=== PATIENT | male | born 1960 ===

== ENCOUNTER 2017-10-13 12:10 | Emergency (ER) | payer MEDICARE, OTHER ==
--- NOTE | 2017-10-13 12:12 | ER Report ---
History and Physical Time Seen By MD: 12:09 HPI/CHASE CHIEF COMPLAINT: anxiety and alcohol use HISTORY OF PRESENT ILLNESS: This is a 56 year old male. He has been having anxiety for the last few days. He has a history of severe anxiety in the past and has self treated it with heavy drinking. Today drank a pint of liquor, heavy drinking the last 3 days. He lives in [place]. This is his first time in [place]. He will sometimes get chest pain with his anxiety. He had some yesterday and some early this morning, but none now. He has no nausea or vomiting. He is not short of breath. He says that he would like to detox for about 12 hours and then have some Librium to help with his alcohol use. He does have a history of hospitalization for detox in the past, but is not interested in that at this time. He reports having seizures with stopping drinking and report an episode in the past where he stopped breathing. REVIEW OF SYSTEMS: Constitutional: No fever or chills. Eyes: No vision changes. ENT: No sore throat. No congestion. Cardiovascular: No chest pain. No palpitations. Respiratory: No cough. No shortness of breath. Gastrointestinal: No abdominal pain. No nausea or vomiting. Genitourinary: No dysuria. No frequency Musculoskeletal: No musculoskeletal pain. Skin: No rashes. Neurological: No numbness. No headache. Allergies: Coded Allergies: No Known Drug Allergies (Unverified , 10/13/17) Home Meds Reported Medications Quetiapine Fumarate (SEROQUEL) 25 Mg Tablet, 25 MG PO QDAY 10/13/17 Citalopram Hydrobromide (CELEXA) 20 Mg Tablet, 20 MG PO QDAY, #5 TAB 10/13/17 Reviewed Nurses Notes: Yes Constitutional Vital Sign - Last 24 Hours 10/13/17 10/13/17 10/13/17 10/13/17 12:11 12:11 12:25 12:30 Temp 98.4 Pulse 90 83 Resp 28 B/P (MAP) 126/96 (106) 126/96 110/95 (100) Pulse Ox 91 93 O2 Delivery Room Air 10/13/17 10/13/17 10/13/17 10/13/17 12:40 12:55 13:00 13:10 Pulse ??? 79 83 B/P (MAP) 86/65 (72) Pulse Ox 91 91 10/13/17 10/13/17 10/13/17 10/13/17 13:25 13:30 13:35 13:50 Pulse 74 74 74 B/P (MAP) 100/74 (83) Pulse Ox 92 91 92 10/13/17 10/13/17 10/13/17 10/13/17 14:00 14:05 14:20 14:30 Pulse 70 75 B/P (MAP) 95/66 (76) 106/80 (89) Pulse Ox 89 95 10/13/17 10/13/17 10/13/17 14:35 14:50 15:00 Pulse 73 74 B/P (MAP) 125/90 (102) Pulse Ox 93 93 Intake and Output 10/13/17 10/13/17 10/14/17 15:00 23:00 07:00 Intake Total 2015.2 ml Balance 2015.2 ml Physical Exam General Appearance: The patient is alert. Disheveled appearance. The patient continually apologizes for his appearance. No acute distress. Eyes: Pupils are equal, round. Reactive to light. No pallor or icterus, but does have some injection of the sclera. Extraocular movements are intact. ENT: Mucous membranes are moist. Normal oral mucosa. Posterior oropharynx is normal. Neck: Supple and non tender. No lymphadenopathy. Respiratory: Lungs are clear to auscultation. Cardiovascular: Regular rate and rhythm. No murmurs, gallops or rubs. Normal capillary refill. Gastrointestinal: Abdomen is soft and non tender. Nondistended. No masses or organomegaly. Normal active bowel sounds. Neurological: Alert and oriented x3. No focal neurologic deficits noted other than effects of acute alcohol intoxication. Skin: Warm and dry. Musculoskeletal: Extremities are nontender. No tenderness in palpation of the cervical, thoracic and lumbar spine. DIFFERENTIAL DIAGNOSIS: After history and physical exam, differential diagnosis was considered for alcohol intoxication and anxiety Medical Decision Making Data Points Result Diagram: 10/13/17 1232 10/13/17 1232 Laboratory Hematology Test 10/13/17 12:32 10/13/17 12:41 Red Blood Count 5.44 M/uL (4.00-5.60) Mean Corpuscular Volume 98.9 fL (80.0-96.0) Mean Corpuscular Hemoglobin 34.4 pg (26.0-33.0) Mean Corpuscular Hemoglobin Concent 34.8 g/dL (32.0-36.0) Red Cell Distribution Width 16.0 % (11.5-14.5) Mean Platelet Volume 9.7 fL (7.2-11.1) Neutrophils (%) (Auto) 61.5 % (39.4-72.5) Lymphocytes (%) (Auto) 24.2 % (17.6-49.6) Monocytes (%) (Auto) 13.0 % (4.1-12.4) Eosinophils (%) (Auto) 0.8 % (0.4-6.7) Basophils (%) (Auto) 0.5 % (0.3-1.4) Nucleated RBC Relative Count (auto) 0.1 /100WBC Neutrophils # (Auto) 5.4 K/uL (2.0-7.4) Lymphocytes # (Auto) 2.1 K/uL (1.3-3.6) Monocytes # (Auto) 1.1 K/uL (0.3-1.0) Eosinophils # (Auto) 0.1 K/uL (0.0-0.5) Basophils # (Auto) 0.0 K/uL (0.0-0.1) Nucleated RBC Absolute Count (auto) 0.01 K/uL Sodium Level 149 mmol/L (137-145) Potassium Level 3.5 mmol/L (3.5-5.0) Chloride Level 107 mmol/L (98-107) Carbon Dioxide Level 24 mmol/L (22-30) Blood Urea Nitrogen 9 mg/dl (9-21) Creatinine 0.90 mg/dl (0.66-1.25) Glomerular Filtration Rate Calc > 60.0 Random Glucose 105 mg/dl (75-110) Calcium Level 8.5 mg/dl (8.4-10.2) Magnesium Level 2.1 mg/dl (1.7-2.2) Total Bilirubin 0.6 mg/dl (0.2-1.3) Aspartate Amino Transf (AST/SGOT) 114 U/L (0-35) Alanine Aminotransferase (ALT/SGPT) 66 U/L (0-56) Alkaline Phosphatase 130 U/L (0-126) Total Protein 7.3 gm/dl (6.3-8.2) Albumin 3.9 g/dl (3.5-5.0) Thyroid Stimulating Hormone (TSH) 1.23 uIU/ml (0.46-4.68) Salicylates Level < 10 mg/L Salicylate Last Dose Date unk Acetaminophen Level < 10 ug/ml Serum Alcohol 336 mg/dl Urine Color Yellow Urine Clarity Clear Urine pH 5.0 pH (4.8-9.5) Urine Specific [place] 1.017 Urine Protein Negative mg/dL (NEGATIVE) Urine Glucose (UA) Negative mg/dL (NEGATIVE) Urine Ketones Negative mg/dL (NEGATIVE) Urine Blood Negative (NEGATIVE) Urine Nitrite Negative (NEGATIVE) Urine Bilirubin Negative (NEGATIVE) Urine Urobilinogen Negative mg/dL (0.2-1.9) Urine Leukocyte Esterase Negative (NEGATIVE) Urine RBC <1 /HPF (0-2/HPF) Urine WBC 2 /HPF (0-5/HPF) Urine Squamous Epithelial Cells Moderate /LPF (</=FEW) Urine Bacteria Negative /HPF (NONE-FEW) Urine Hyaline Casts Few /LPF (NONE-FEW) Urine Mucus Few /HPF (NONE-FEW) Urine Opiates Screen Negative Urine Barbiturates Screen Negative Ur Tricyclic Antidepressants Screen Negative Urine Phencyclidine Screen Negative Urine Amphetamines Screen Negative Urine Benzodiazepines Screen Positive Urine Cocaine Screen Negative Urine Cannabinoids Screen Negative Chemistry Test 10/13/17 12:32 10/13/17 12:41 White Blood Count 8.8 k/uL (4.5-11.0) Red Blood Count 5.44 M/uL (4.00-5.60) Hemoglobin 18.7 g/dL (14.0-18.0) Hematocrit 53.8 % (42.0-52.0) Mean Corpuscular Volume 98.9 fL (80.0-96.0) Mean Corpuscular Hemoglobin 34.4 pg (26.0-33.0) Mean Corpuscular Hemoglobin Concent 34.8 g/dL (32.0-36.0) Red Cell Distribution Width 16.0 % (11.5-14.5) Platelet Count 168 K/uL (150-450) Mean Platelet Volume 9.7 fL (7.2-11.1) Neutrophils (%) (Auto) 61.5 % (39.4-72.5) Lymphocytes (%) (Auto) 24.2 % (17.6-49.6) Monocytes (%) (Auto) 13.0 % (4.1-12.4) Eosinophils (%) (Auto) 0.8 % (0.4-6.7) Basophils (%) (Auto) 0.5 % (0.3-1.4) Nucleated RBC Relative Count (auto) 0.1 /100WBC Neutrophils # (Auto) 5.4 K/uL (2.0-7.4) Lymphocytes # (Auto) 2.1 K/uL (1.3-3.6) Monocytes # (Auto) 1.1 K/uL (0.3-1.0) Eosinophils # (Auto) 0.1 K/uL (0.0-0.5) Basophils # (Auto) 0.0 K/uL (0.0-0.1) Nucleated RBC Absolute Count (auto) 0.01 K/uL Glomerular Filtration Rate Calc > 60.0 Calcium Level 8.5 mg/dl (8.4-10.2) Magnesium Level 2.1 mg/dl (1.7-2.2) Total Bilirubin 0.6 mg/dl (0.2-1.3) Aspartate Amino Transf (AST/SGOT) 114 U/L (0-35) Alanine Aminotransferase (ALT/SGPT) 66 U/L (0-56) Alkaline Phosphatase 130 U/L (0-126) Total Protein 7.3 gm/dl (6.3-8.2) Albumin 3.9 g/dl (3.5-5.0) Thyroid Stimulating Hormone (TSH) 1.23 uIU/ml (0.46-4.68) Salicylates Level < 10 mg/L Salicylate Last Dose Date unk Acetaminophen Level < 10 ug/ml Serum Alcohol 336 mg/dl Urine Color Yellow Urine Clarity Clear Urine pH 5.0 pH (4.8-9.5) Urine Specific [place] 1.017 Urine Protein Negative mg/dL (NEGATIVE) Urine Glucose (UA) Negative mg/dL (NEGATIVE) Urine Ketones Negative mg/dL (NEGATIVE) Urine Blood Negative (NEGATIVE) Urine Nitrite Negative (NEGATIVE) Urine Bilirubin Negative (NEGATIVE) Urine Urobilinogen Negative mg/dL (0.2-1.9) Urine Leukocyte Esterase Negative (NEGATIVE) Urine RBC <1 /HPF (0-2/HPF) Urine WBC 2 /HPF (0-5/HPF) Urine Squamous Epithelial Cells Moderate /LPF (</=FEW) Urine Bacteria Negative /HPF (NONE-FEW) Urine Hyaline Casts Few /LPF (NONE-FEW) Urine Mucus Few /HPF (NONE-FEW) Urine Opiates Screen Negative Urine Barbiturates Screen Negative Ur Tricyclic Antidepressants Screen Negative Urine Phencyclidine Screen Negative Urine Amphetamines Screen Negative Urine Benzodiazepines Screen Positive Urine Cocaine Screen Negative Urine Cannabinoids Screen Negative Toxicology Test 10/13/17 12:32 10/13/17 12:41 Salicylates Level < 10 mg/L Salicylate Last Dose Date unk Acetaminophen Level < 10 ug/ml Serum Alcohol 336 mg/dl Urine Opiates Screen Negative Urine Barbiturates Screen Negative Ur Tricyclic Antidepressants Screen Negative Urine Phencyclidine Screen Negative Urine Amphetamines Screen Negative Urine Benzodiazepines Screen Positive Urine Cocaine Screen Negative Urine Cannabinoids Screen Negative Urinalysis Test 10/13/17 12:41 Urine Color Yellow Urine Clarity Clear Urine pH 5.0 pH (4.8-9.5) Urine Specific [place] 1.017 Urine Protein Negative mg/dL (NEGATIVE) Urine Glucose (UA) Negative mg/dL (NEGATIVE) Urine Ketones Negative mg/dL (NEGATIVE) Urine Blood Negative (NEGATIVE) Urine Nitrite Negative (NEGATIVE) Urine Bilirubin Negative (NEGATIVE) Urine Urobilinogen Negative mg/dL (0.2-1.9) Urine Leukocyte Esterase Negative (NEGATIVE) Urine RBC <1 /HPF (0-2/HPF) Urine WBC 2 /HPF (0-5/HPF) Urine Squamous Epithelial Cells Moderate /LPF (</=FEW) Urine Bacteria Negative /HPF (NONE-FEW) Urine Hyaline Casts Few /LPF (NONE-FEW) Urine Mucus Few /HPF (NONE-FEW) ED Course/Re-evaluation Clinical Indication for ER IV: Hydration, IV Access ED Course The patient was very shaky initially, but improved with Librium 20mg oral dose. Labs as noted with elevation of LFTs and elevated alcohol level. Positive for benzodiazepines on drug screen, but negative otherwise. He was not sure what he wanted to do, but on further talking to him, he was interested in coming in to the hospital for detox. Discussed the case with Dr. Vasquez who accepted the patient for admission. Decision to Disposition Date: October 13, 2017 Decision to Disposition Time: 14:42 Depart Departure Latest Vital Signs Vital Signs Date Time Temp Pulse Resp B/P (MAP) Pulse Ox O2 Delivery O2 Flow Rate FiO2 10/13/17 15:00 125/90 (102) 10/13/17 14:50 74 93 10/13/17 12:11 98.4 28 Room Air Impression: Primary Impression: Alcohol intoxication Condition: Condition Unchanged Disposition: XFER TO [facility] Problem Qualifiers Primary Impression: Alcohol intoxication Complication of substance-induced condition: uncomplicated Qualified Codes: F10.920 - Alcohol use, unspecified with intoxication, uncomplicated TESSIE SR MD October 13, 2017 12:12
[2017-10-13] MEDS ORDERED: THIAMINE HCL(*) 200 MG/2 ML IN 100 MG, FOLIC ACID(*) 50 MG/10 ML INJ 1 MG, MULTIVITAMIN... IV ONE (12:39)
[2017-10-13] MEDS ORDERED: NS(*) 0.9% 1000 ML BAG 1,000 ML IV ONE (12:39)
[2017-10-13 13:07] LABS: PLATELET COUNT, AUTOMATED 168 K/uL (150-450)
[2017-10-13] MEDS ORDERED: CITA-156 PO (13:17)
[2017-10-13] MEDS ORDERED: QUET25TA30 PO (14:53)
[2017-10-13 15:00] VITALS: BP 125/90
== END 2017-10-13 15:20 ==
LOC: ER 12:14
DX: F10.920 Alcohol use, unspecified with intoxication, uncomplicated (principal)
CPT/HCPCS: 80305; 80320; 80329; 81001; 83735; 84443; 85025; 96361; 96365; 96366; 99285; J3411; J3475; J7030; 82040; 82247; 82310; 82374; 82435; 82565; 82947; 84075; 84132; 84155; 84295; 84450; 84460; 84520

== ENCOUNTER 2017-10-13 14:51 | Inpatient (IN) | payer MEDICARE, OTHER ==
[~2017-10-13] VITALS: Ht 172.7 cm; Wt 68.0 kg
[~2017-10-13 14:51] MED LIST changes: -FOLI-68 PO; -HYDR25CA83 PO; -LAMO100T56 PO; -LEVO50TA80 PO; -LUR80PT PO; -MULT-1379 PO; -NICO-218 TD; -QUET25TA30 PO; -THIA100T62 PO; -VENL75CA58 PO
[2017-10-13] MEDS ORDERED: QUET25TA30 PO (14:53)
[2017-10-13 15:20] VITALS: BP 128/90
[2017-10-13] MEDS ORDERED: MAG HYD/AL HYD/SIMETH 30ML UDC PO PRN (15:40)
[2017-10-13] MEDS: DIAZEPAM 20 MG PER CIWA PROTOCOL PO PRN ×5 (15:47→22:16)
[2017-10-13] MEDS: NICOTINE 21 MG/24 HR PATCH TD SCH (16:51)
[2017-10-13 21:10] VITALS: BP 126/82
[2017-10-13] MEDS: QUEtiapine FUM 25 MG TAB PO SCH (21:20)
[2017-10-14] VITALS (8 sets, daily range): BP systolic 102–149; BP diastolic 60–116
[2017-10-14] MEDS: DIAZEPAM 20 MG PER CIWA PROTOCOL PO PRN ×13 (04:25→21:32)
[2017-10-14] MEDS: THIAMINE HCL 100 MG TAB PO SCH (08:30)
[2017-10-14] MEDS: MULTIVITAMINS PO SCH (08:30)
[2017-10-14] MEDS: CITALOPRAM HYDROBROM 20 MG TAB PO SCH (08:30)
[2017-10-14] MEDS: FOLIC ACID 1 MG TAB PO SCH (08:30)
[2017-10-14] MEDS: QUEtiapine FUM 25 MG TAB PO SCH ×2 (08:30→21:30)
[2017-10-14] MEDS: NICOTINE 21 MG/24 HR PATCH TD SCH (08:30)
[2017-10-14] MEDS: IBUPROFEN 600 MG TAB PO PRN (13:56)
--- NOTE | 2017-10-14 21:26 | BHS History & Physical ---
History of Present Illness Chief Complaint "I was DT-ing." History of Present Illness This is the 5th ever detox admission for this 56 year old man with history of alcohol dependance who is admitted on a voluntary basis. Pt's actenkbb-sd-ecs was driving him home to [place] when she left him here in [place] at a truck stop "because of a miscommunication." Pt said he was having a panic attack and got himself a ride to the ER, where he was noted to be intoxicated, with BAL 336 , was flushed and tremulous, and was given librium 20 mg with good result. Pt says he has been drinking more heavily over past one month-- prior to that he was sober for 5 weeks after an inpatient detox in [place]. Pt has been drinking most of adult life, but significantly more since 2012, when his son of complications of alcohol dependence. Pt reports that once he had a withdrawal seizure, when he "stopped breathing." He has 3 prior detox admissions in [place] and one in [place], [place]. He has never had a rehab admission. He has been treated for depression and anxiety as an outpatient [facility]-- he sees Dr. Cedillo at the [facility] in [place] once every 6 months and is maintained on Celexa 20 mg q am, and Seroquel 25 mg BID. He denies any history of suicidal ideation or suicide attempts, and denies any significant increase in depressive symptoms currently. [facility] - History Mental Health History: 4 prior detox admissions; outpatient medication management for depression and anxiety every 6 months, on celexa and seroquel. Problems: Substance Abuse History: Alcohol abuse since his teens. Past history of abusing morphine after fractured vertebrae, none in past two years. No other substance abuse. Victim Issues: denies Other Social History: Born in [place], to parents. Oldest of 5 children-- two brothers and two sisters. Dropped out in 10th grade, joined [employer] for 3 years age [age], honorable discharge, served [employer]. and twice, had two sons. One in 2012. Lives in [place] with other son and daughter in law, and 4 year old granddaughter. Has VA insurance but no service-connected disability. Home Meds Reported Medications Quetiapine Fumarate (SEROQUEL) 25 Mg Tablet, 25 MG PO BID 10/13/17 Citalopram Hydrobromide (CELEXA) 20 Mg Tablet, 20 MG PO QAM, #5 TAB 10/13/17 Allergies: Coded Allergies: No Known Drug Allergies (Unverified , 10/13/17) Family Psychiatric History: Son of complications of alcohol dependence BHS - Exam Physical Exam Vital Signs Vital Signs 10/14/17 10/14/17 10/14/17 04:20 13:50 17:40 Temp 97.8 Pulse 88 Resp 16 B/P (MAP) 140/100 (113) Pulse Ox 91 O2 Delivery Room Air O2 Flow Rate 3.0 Mental Status Exam General Appearance: Cooperative, Polite, Good Interaction, Unkept, Other Speech: Delayed, Slurred Mood: Dysthmic/Depressed, Other ("not good, but I did this to myself.") Affect: Sad Thought Process: Organized, Logical, Goal Directed Thought Content: No Suicidal Ideation, No Homicidal Ideation, No Delusions, No Auditory Halllucinations, No Visual Hallucinations, No Thought Broadcasting, No Ideas of Reference, No Obsessions, No Compulsions, No Other Sensorium: Clear Cognition: Alert & Oriented-Person, Alert & Oriented-Place, Alert & Oriented- Time, [id number]-[id number] Memory: Immediate, Recent, Remote Intelligence: Average Insight Judgment: Fair Sleep: Normal Medical Decision Making Pre-Admit Course Medical Record Review: Yes [facility] Assessment and Plan [id number] Encounter Date: October 14, 2017 Ruar-us-Zsrm Encounter Time: 10:30 [facility] Plan: Admit to Unit, Necessary Precautions, Individual/Group Therapy, Admin /Titrate Meds, Educate Patient Tobacco Medications: Started Multpiple Antipsychotics Used: No Problems: (1) Alcohol withdrawal Assessment & Plan: Will follow CIWA protocol using valium for detox. (2) Alcohol use disorder, severe, dependence Assessment & Plan: Will encourage rehab admission after detox completed. (3) Persistent depressive disorder Assessment & Plan: continue nick and NILA Talavera MD October 14, 2017 21:25
[2017-10-15 05:59] VITALS: BP 122/72
[2017-10-15] MEDS: IBUPROFEN 600 MG TAB PO PRN (08:11)
[2017-10-15] MEDS: CITALOPRAM HYDROBROM 20 MG TAB PO SCH (08:12)
[2017-10-15] MEDS: QUEtiapine FUM 25 MG TAB PO SCH ×2 (08:12→21:08)
[2017-10-15] MEDS: FOLIC ACID 1 MG TAB PO SCH (08:12)
[2017-10-15] MEDS: MULTIVITAMINS PO SCH (08:12)
[2017-10-15] MEDS: NICOTINE 21 MG/24 HR PATCH TD SCH (08:13)
[2017-10-15] MEDS: THIAMINE HCL 100 MG TAB PO SCH (08:13)
[2017-10-15 10:22] VITALS: BP 120/97
[2017-10-15] MEDS: DIAZEPAM 20 MG PER CIWA PROTOCOL PO PRN (11:27)
--- NOTE | 2017-10-15 12:07 | BHS Progress Note ---
S - Subjective Progress Notes Subjective Seen in patient's room this morning accompanied by treatment team. Patient reports he is much better today than yesterday--much less tremulous and his appetite is returning. Nausea is better. Still pretty "shaky" and feel that he needs more diazepam in order to be comfortable. Denies audio/visual hallucinations. Denies feeling depressed but admits to restlessness associated with withdrawal. States he takes citalopram and quetiapine for sleep and anxiety but feels that these are working well. Affirms desire to quit drinking and understanding that he needs to go to a residential program to get and stay sober. Discussed referral options including [facility]. Says that he is ready to take that step. Would like to return to [place] and live with his son and granddaughter. New PMH--Agus revealed to Viviana that he is Hep C positive. In treatment team, we contacted the patient's son who believes that his father has a serious drinking problem and needs to go to treatment. He says that his father was in treatment once before through [facility] but he was not successful in that program and continued to drink. Agus is welcome to return to his son's home in [place], however, the son does not feel confident that his father will not drink while he is awaiting placement. We talked about his going to a structured transition placement in [place] while he is awaiting a treatment bed. Considered placement options. We agreed to pursue application to the [facility] program and began that process. Suicidal Ideation: None S - Objective Physical Exam Muscle Strength and Tone: Other (tremulous) [facility] Medications Reviewed: Side Effects (denies side effects) Mental Status Exam General Appearance: Cooperative, Polite, Good Interaction, Unkept Speech: Clear, Spontaneous, Normal Rate, Normal Rhythm, Normal Volume, Normal Tone Mood: Dysthmic/Depressed, Other ("not good, but I did this to myself.") Affect: Sad Thought Process: Organized, Logical, Goal Directed Thought Content: No Suicidal Ideation, No Homicidal Ideation, No Delusions, No Auditory Halllucinations, No Visual Hallucinations, No Thought Broadcasting, No Ideas of Reference, No Obsessions, No Compulsions, No Other Sensorium: Clear Cognition: Alert & Oriented-Person, Alert & Oriented-Place, Alert & Oriented- Time (able to state day, date), Fiwxk-Cphlzyzv-Vekvkaqxx Memory: Immediate, Recent, Remote Intelligence: Average Insight Judgment: Good (Understands the need to get and stay sober) [facility] Assessment and Plan Yegz-ml-Lskv Encounter Date: October 15, 2017 Rlqe-pd-[id number] Encounter Time: 08:15 (15 minutes of kuis-ur-jgzc time spent with patient, 20 minutes in family conference,release plan) [facility] Plan: Necessary Precautions, Individual/Group Therapy, Admin/Titrate Meds, Educate Patient Tobacco Medications: Started Multpiple Antipsychotics Used: No Problems: (1) Alcohol withdrawal (2) Alcohol use disorder, severe, dependence (3) Persistent depressive disorder SEPIDEH HIDALGO DO October 15, 2017 08:32
[2017-10-15 15:15] VITALS: BP 105/80
[2017-10-15 19:46] VITALS: BP 115/89
[2017-10-16 04:48] VITALS: BP 108/78
[2017-10-16 07:11] LABS: PLATELET COUNT, AUTOMATED 120 K/uL (150-450)
[2017-10-16] MEDS: MULTIVITAMINS PO SCH (08:23)
[2017-10-16] MEDS: FOLIC ACID 1 MG TAB PO SCH (08:23)
[2017-10-16] MEDS: CITALOPRAM HYDROBROM 20 MG TAB PO SCH (08:23)
[2017-10-16] MEDS: THIAMINE HCL 100 MG TAB PO SCH (08:23)
[2017-10-16] MEDS: QUEtiapine FUM 25 MG TAB PO SCH ×2 (08:23→20:57)
[2017-10-16] MEDS: NICOTINE 21 MG/24 HR PATCH TD SCH (09:19)
[2017-10-16 09:22] VITALS: BP 102/72
--- NOTE | 2017-10-16 10:09 | BHS Progress Note ---
[facility] - Subjective Progress Notes Subjective "I'm still having nausea and I miss my family in [place]." Reports feeling better with detox symptoms, diarrhea subsided, able to eat and drink. Reports son as best support system. Consideration for placement at [facility] for structured living prior to residential treatment program Denies depression or anxiety, denies auditory/visual hallucinations Desires to go to residential treatment, application completed for [facility] in [place], [place] Denies urge to drink, limited appetite, gait fairly steady, tremulous CIWA = 7 @ 0920 Suicidal Ideation: None Homicidal Ideation: None [facility] - Objective Physical Exam Vital Signs Allergies Coded Allergies No Known Drug Allergies (Unverified10/13/17) Deferred Vital Signs Date Time Temp Pulse Resp B/P (MAP) Pulse Ox O2 Delivery O2 Flow Rate FiO2 10/16/17 09:22 98.6 16 102/72 (82) 95 Nasal Cannula 2.0 10/16/17 04:48 92 [facility] Medications Reviewed: Side Effects (denies side effects) Mental Status Exam General Appearance: Cooperative, Polite, Good Interaction, Unkept Speech: Clear, Spontaneous, Normal Rate, Normal Rhythm, Normal Volume, Normal Tone Mood: Dysthmic/Depressed, No Other Affect: Sad Thought Process: Organized, Logical, Goal Directed Thought Content: No Suicidal Ideation, No Homicidal Ideation, No Delusions, No Auditory Halllucinations, No Visual Hallucinations, No Thought Broadcasting, No Ideas of Reference, No Obsessions, No Compulsions, No Other Sensorium: Clear Cognition: Alert & Oriented-Person, Alert & Oriented-Place, Alert & Oriented- Time (able to state day, date), Ipodz-Apnezbvb-Gzrnubwuq Memory: Immediate, Recent, Remote Intelligence: Average Insight Judgment: Good (Understands the need to get and stay sober) Result Diagram: 10/16/17 0649 10/16/17 0649 Lab Vital Signs Date Time Temp Pulse Resp B/P (MAP) Pulse Ox O2 Delivery O2 Flow Rate FiO2 10/16/17 09:22 98.6 16 102/72 (82) 95 Nasal Cannula 2.0 10/16/17 04:48 92 Allergies Coded Allergies No Known Drug Allergies (Unverified10/13/17) [facility] Assessment and Plan Ketc-lu-[id number] Encounter Date: October 16, 2017 Gglq-hg-[id number] Encounter Time: 10:07 BHS Plan: Necessary Precautions, Individual/Group Therapy, Admin/Titrate Meds, Educate Patient Tobacco Medications: Started Multpiple Antipsychotics Used: No Problems: (1) Alcohol use disorder, severe, dependence Status: Chronic (2) Persistent depressive disorder Status: Chronic (3) Alcohol withdrawal Status: Acute Condition Continue CIWA protocol for alcohol detoxification Maintain precautions Encourage fluids Ongoing discharge planning with consideration of residential treatment program GONZALO BHATIA NP October 16, 2017 10:09
[2017-10-16] MEDS: IBUPROFEN 600 MG TAB PO PRN ×2 (10:51→17:43)
[2017-10-16 13:28] VITALS: BP 96/64
[2017-10-16] MEDS ORDERED: VENL75CA58 PO (14:04)
[2017-10-17 06:27] VITALS: BP 110/72
[2017-10-17] MEDS: THIAMINE HCL 100 MG TAB PO SCH (08:10)
[2017-10-17] MEDS: FOLIC ACID 1 MG TAB PO SCH (08:10)
[2017-10-17] MEDS: MULTIVITAMINS PO SCH (08:10)
[2017-10-17] MEDS: QUEtiapine FUM 25 MG TAB PO SCH ×2 (08:10→20:51)
[2017-10-17] MEDS: CITALOPRAM HYDROBROM 20 MG TAB PO SCH (08:10)
[2017-10-17] MEDS: NICOTINE 21 MG/24 HR PATCH TD SCH (08:11)
--- NOTE | 2017-10-17 10:00 | BHS Progress Note ---
BHS - Subjective Progress Notes Subjective "I've just have depression about putting myself here." Depression rated "6, I'm not happy with myself. There's no reason for it." Maintains desire to enter residential substance abuse treatment Denies urge to drink at present time, agrees with son participating in treatment team 10/18/17 Sleeping well, denies nausea/diarrhea, no tremor visible VS: 98.6 T, 74 P, 118/72 BP, 95% oxygen saturation Labs 10/16/17: Platelets 120, AST 67, ALT 53 total bilirubin 0.8 Suicidal Ideation: None Homicidal Ideation: None BHS - Objective Physical Exam Vital Signs Current Medications Medications (Trade) Dose Ordered Sig/Petar Route PRN Reason Start Time Stop Time Status Last Admin Dose Admin Al Hydrox/Mg Hydrox/Simethicone (Maalox(*) 30 ml Udcup (Or Equiv)) 30 ml Q4H PRN PO DYSPEPSIA 10/13/17 15:40 11/12/17 15:39 Multivitamins (Thera-M Enhanced Tab (Or Equiv)) 1 each QDAY PO 10/14/17 09:00 11/13/17 08:59 10/17/17 08:10 Thiamine HCl (Vitamin B-1(*) 100 Mg Tab (Or Equiv)) 100 mg QDAY PO 10/14/17 09:00 11/13/17 08:59 10/17/17 08:10 Folic Acid (Folic Acid (*) 1 Mg Tab) 1 mg QDAY PO 10/14/17 09:00 11/13/17 08:59 10/17/17 08:10 Diazepam (Valium(*) 10 Mg Tab (Or Equiv)) 20 mg Q1H PRN PO FOLLOW CIWA PROTOCOL 10/13/17 15:40 10/27/17 15:39 10/15/17 11:27 Nicotine (Nicoderm Cq(*) 21 Mg/24 Hr (Or Equiv)) 21 mg QDAY TD 10/13/17 16:10 11/12/17 16:09 10/17/17 08:11 Citalopram Hydrobromide (CeleXA 20 MG TAB (OR EQUIV)) 20 mg QAM PO 10/14/17 09:00 11/13/17 08:59 10/17/17 08:10 Quetiapine Fumarate (SEROquel 25 MG TAB (OR EQUIV)) 25 mg BID PO 10/13/17 21:00 11/12/17 20:59 10/17/17 08:10 Ibuprofen (Motrin (*) 600 Mg Tab (Or Equiv)) 600 mg Q6H PRN PO HEADACHE 10/14/17 13:30 11/13/17 13:29 10/16/17 17:43 Vital Signs Date Time Temp Pulse Resp B/P (MAP) Pulse Ox O2 Delivery O2 Flow Rate FiO2 10/17/17 06:27 98.7 59 110/72 (85) 94 Room Air 10/16/17 13:28 22 10/16/17 09:22 2.0 Allergies Coded Allergies No Known Drug Allergies (Unverified10/13/17) [facility] Medications Reviewed: Side Effects (denies side effects) Mental Status Exam General Appearance: Cooperative, Polite, Good Interaction, Unkept Speech: Clear, Spontaneous, Normal Rate, Normal Rhythm, Normal Volume, Normal Tone Mood: Dysthmic/Depressed, No Other Affect: Sad Thought Process: Organized, Logical, Goal Directed Thought Content: No Suicidal Ideation, No Homicidal Ideation, No Delusions, No Auditory Halllucinations, No Visual Hallucinations, No Thought Broadcasting, No Ideas of Reference, No Obsessions, No Compulsions, No Other Sensorium: Clear Cognition: Alert & Oriented-Person, Alert & Oriented-Place, Alert & Oriented- Time (able to state day, date), Jdeax-Hcdkfidy-Jndrpnlzx Memory: Immediate, Recent, Remote Intelligence: Average Insight Judgment: Good (Understands the need to get and stay sober) Result Diagram: 10/16/17 0649 10/16/17 0649 Microbiology Vital Signs Date Time Temp Pulse Resp B/P (MAP) Pulse Ox O2 Delivery O2 Flow Rate FiO2 10/17/17 06:27 98.7 59 110/72 (85) 94 Room Air 10/16/17 13:28 22 10/16/17 09:22 2.0 [facility] Assessment and Plan [id number] Encounter Date: October 17, 2017 Kszy-[id number] Encounter Time: 09:58 [facility] Plan: Necessary Precautions, Individual/Group Therapy, Admin/Titrate Meds, Educate Patient Tobacco Medications: Started Multpiple Antipsychotics Used: No Problems: (1) Alcohol use disorder, severe, dependence Status: Chronic (2) Persistent depressive disorder Status: Chronic (3) Alcohol withdrawal Status: Acute Condition Continue current medication and treatment Ongoing discharge planning seeking appropriate residential treatment program Maintain precautions GONZALO BHATIA NP October 17, 2017 10:00
[2017-10-17 10:05] VITALS: BP 118/72
[2017-10-18 05:32] VITALS: BP 109/74
[2017-10-18 06:21] LABS: PLATELET COUNT, AUTOMATED 117 K/uL (150-450)
[2017-10-18] MEDS: MULTIVITAMINS PO SCH (08:10)
[2017-10-18] MEDS: FOLIC ACID 1 MG TAB PO SCH (08:10)
[2017-10-18] MEDS: THIAMINE HCL 100 MG TAB PO SCH (08:10)
[2017-10-18] MEDS: CITALOPRAM HYDROBROM 20 MG TAB PO SCH (08:10)
[2017-10-18] MEDS: QUEtiapine FUM 25 MG TAB PO SCH ×2 (08:10→20:52)
[2017-10-18] MEDS: NICOTINE 21 MG/24 HR PATCH TD SCH (08:11)
[2017-10-18 10:00] VITALS: BP 116/85
--- NOTE | 2017-10-18 12:41 | BHS Progress Note ---
[facility] - Subjective Progress Notes Subjective Patient interacting well today with this provider and staff. Patient admits that his finances are limited, and that he can not afford hotel room. Continues to voice intention to enter rehab. Appetite and sleep good, and patient denies any other concerns today. Will continue to monitor alcohol withdrawal to completion, and solidify residential treatment plans. Suicidal Ideation: None Homicidal Ideation: None [facility] - Objective Physical Exam Vital Signs Vital Signs Date Time Temp Pulse Resp B/P (MAP) Pulse Ox O2 Delivery O2 Flow Rate FiO2 10/18/17 10:00 98.1 65 116/85 (95) 94 Oxy Mask 2.0 10/18/17 05:32 15 Muscle Strength and Tone: WNL Gait and Station: Steady [facility] Medications Reviewed: Side Effects (denies side effects), Benefits of Medication, Risks Allergies Reviewed: Yes Mental Status Exam General Appearance: Casual, Well Groomed, Good Eye Contact, Cooperative, Polite , Good Interaction, No Unkept, No Tearful, No Psychomotor Agitation, No Psychomotor Retardation, No Bizarre Mannerisms, No Tics Speech: Clear, Spontaneous, Normal Rate, Normal Rhythm, Normal Volume, Normal Tone Mood: No Dysthmic/Depressed, Euthymic, No Hyperthymic, No Other Affect: Full and Appropriate, Calm, No Sad, No Neutral, No Flat, No Withdrawn, No Tearful, No Anxious, No Agitated Thought Process: Organized, Logical, Goal Directed, No Loose Associations, No Flight of Ideas Thought Content: No Suicidal Ideation, No Homicidal Ideation, No Delusions, No Auditory Halllucinations, No Visual Hallucinations, No Thought Broadcasting, No Ideas of Reference, No Obsessions, No Compulsions, No Other Sensorium: Clear Cognition: Alert & Oriented-Person, Alert & Oriented-Place, Alert & Oriented- Time, Kpnol-Cdgnjykk-Iccybfzkq Memory: Immediate, Recent, Remote Intelligence: Average Insight Judgment: Good (Understands the need to stay sober) Result Diagram: 10/18/1761210/18/17612 [facility] Assessment and Plan Awrc-dr-Lowu Encounter Date: October 18, 2017 Rtza-mv-[id number] Encounter Time: 11:00 [facility] Plan: Necessary Precautions, Individual/Group Therapy, Admin/Titrate Meds, Educate Patient Tobacco Medications: Started Multpiple Antipsychotics Used: No Problems: (1) Alcohol withdrawal Status: Acute (2) Alcohol use disorder, severe, dependence Status: Chronic (3) Persistent depressive disorder Status: Chronic Condition 1. No medication changes. 2. solidify plans for entrance into rehab. Problem Qualifiers (1) Alcohol withdrawal: Complication of substance-induced condition: uncomplicated Qualified Codes: F10.230 - Alcohol dependence with withdrawal, uncomplicated SKIP CORREIA MD October 18, 2017 12:41
[2017-10-18 21:36] VITALS: BP 130/87
[2017-10-19 06:06] VITALS: BP 122/92
[2017-10-19] MEDS: FOLIC ACID 1 MG TAB PO SCH (08:11)
[2017-10-19] MEDS: THIAMINE HCL 100 MG TAB PO SCH (08:11)
[2017-10-19] MEDS: QUEtiapine FUM 25 MG TAB PO SCH (08:11)
[2017-10-19] MEDS: CITALOPRAM HYDROBROM 20 MG TAB PO SCH (08:11)
[2017-10-19] MEDS: MULTIVITAMINS PO SCH (08:11)
[2017-10-19] MEDS: NICOTINE 21 MG/24 HR PATCH TD SCH (08:12)
[2017-10-19] MEDS ORDERED: LUR80PT PO (09:01)
[2017-10-19] MEDS ORDERED: LAMO100T56 PO (09:02)
[2017-10-19] MEDS ORDERED: MULT-1379 PO ×2 (09:03→09:30)
[2017-10-19] MEDS ORDERED: LEVO50TA80 PO (09:03)
[2017-10-19] MEDS ORDERED: HYDR25CA83 PO (09:04)
[2017-10-19] MEDS ORDERED: FOLI-68 PO (09:28)
[2017-10-19] MEDS ORDERED: CITA-156 PO (09:28)
[2017-10-19] MEDS ORDERED: QUET25TA30 PO (09:29)
[2017-10-19] MEDS ORDERED: NICO-218 TD (09:29)
[2017-10-19] MEDS ORDERED: THIA100T62 PO (09:30)
--- NOTE | 2017-10-20 16:28 | DISCHARGE SUMMARY ---
DATE OF ADMISSION: October 13, 2017 DATE OF DISCHARGE: October 19, 2017 Patient was seen on the 19 of October at approximately 1000 hours for note concerning this dictation. FINAL DIAGNOSES 1. Alcohol use disorder, severe. 2. Alcohol withdrawal, considered complete. 3. History of persisting depressive disorder. 4. Stressors of alcohol use disorder. REASON FOR ADMISSION This is a 56-year-old male who was admitted as he was traveling through the [place] area for alcohol withdrawal. Please see history and physical for further details. Patient remained cooperative throughout his stay on the unit. Patient was noted to have VA benefits to some degree. Patient homeless, here in [place], and patient was agreeable at time of discharge once alcohol withdrawal was treated to completion to go stay at the [facility] until entrance into rehab could be made. Patient was calm, cooperative throughout his stay. Alcohol withdrawal was treated to completion, considered moderate to severe in nature. Please see medical records. Patient indicating no other significant concerns. PHYSICAL EXAMINATION Please see ER note. GENERAL: A 56-year-old male in no acute medical distress. Patient having some symptoms of withdrawal. VITAL SIGNS: Temperature upon admission 98.4, pulse 90, respiratory rate 28, blood pressure 126/96, and pulse oximetry 91 on room air. At time of discharge from [facility]al [facility] Unit, vital signs showed temperature 98.2, pulse 62, respiratory rate 15, blood pressure 122/92, and pulse oximetry 90 on room air. LABORATORY DATA At time of admission, serum alcohol was noted to be 336. Patient was positive for benzodiazepines, likely prescribed before toxicology screen was drawn. Urinalysis was unremarkable overall. Chemistry panel notable for AST elevated at 114 and ALT at 66 upon admission. CBC notable for hemoglobin and hematocrit elevated at 18.7 and 53.8 with an MCV elevated at 98.9 and an MCH elevated at 34.4. MENTAL STATUS EXAMINATION GENERAL APPEARANCE, BEHAVIOR, AND ATTITUDE: At time of discharge, he is a pleasant, cooperative, 56-year-old male thankful for his treatment here at [facility]. Patient's alcohol withdrawal was treated to completion. He was making good eye contact and was discharged to [facility] van that would take him to [place] for further treatment. No periods of tearfulness. No bizarre mannerisms or tics. SPEECH: Within normal limits. Regular rate, rhythm, volume, and tone. MOOD: Described as good. AFFECT: Full and bright. THOUGHT PROCESSES: Goal directed, logical. No loose associations or flight of ideas. THOUGHT CONTENT: Free of auditory or visual hallucinations, ideas of reference , thought broadcasting, delusions, obsessions, compulsions, and patient adamantly denying any suicidal or homicidal ideations. SENSORIUM: Clear. COGNITION: Alert and oriented to person, place, time, situation. MEMORY: Immediate, recent, and remote estimated intact. INTELLIGENCE: Average based on interview. INSIGHT AND JUDGMENT: Considered grossly intact in the absence of alcohol use. RESULTS OF TESTING IMAGING: None. LABORATORY DATA: See above. CONSULTATIONS None. TREATMENT Patient received medications, participated in individual and group therapy. HOSPITAL COURSE Patient's alcohol withdrawal was treated to completion, and patient continued to take a somewhat active role in his care. Patient agreed to go stay at the [facility] in [place] until entrance into rehab could be made. Patient would likely stay in [place] as well at the crisis center there before entering the rehab again at [place]. CONDITION OF PATIENT ON DISCHARGE Stable, considered minimal risk to himself or others in the absence of alcohol use. DISPOSITION Patient discharged again to the [facility] van. He would travel to [place]. From there, he would enter [facility] to await entrance into [place] rehab. Patient would follow up with the rehab center and the [facility]. He would abstain from alcohol. He was given the crisis line should symptoms return. MEDICATIONS AT TIME OF DISCHARGE 1. Celexa 20 mg every morning. 2. Folic acid 1 mg daily over the counter. 3. The patient was encouraged to abstain from smoking and use nicotine withdrawal aids through the [facility]. 4. Seroquel 25 mg twice a day was given. 5. Multivitamin was given daily. 6. Vitamin B1 100 mg daily over the counter. Risks, benefits, and alternatives of above discharge plan were discussed. Informed consent was given to proceed with above discharge plan by this competent patient. AGUSTIN
== END 2017-10-19 10:45 | DRG 897 ==
LOC: BHS 14:51
PROVIDERS: ADMIT Psychiatry & Neurology Psychiatry; ATTEND Psychiatry & Neurology Psychiatry
DX: F10.230 Alcohol dependence with withdrawal, uncomplicated (principal); F34.1 Dysthymic disorder; F41.8 Other specified anxiety disorders; Y90.8 Blood alcohol level of 240 mg/100 ml or more; Z73.3 Stress, not elsewhere classified; Z59.0 Homelessness; Z76.5 Malingerer [conscious simulation]
CPT/HCPCS: 36415; 82040; 82247; 82310; 82374; 82435; 82565; 82947; 84075; 84132; 84155; 84295; 84450; 84460; 84520; 85025; 86580; 90853

== ENCOUNTER → 2017-10-13 | Outpatient (CLI) | payer MEDICARE ==
[~2017-10-13] MED LIST: CITA-156 PO; FOLI-68 PO; HYDR25CA83 PO; LAMO100T56 PO; LEVO50TA80 PO; LUR80PT PO; MULT-1379 PO; NICO-218 TD; QUET25TA30 PO; THIA100T62 PO; VENL75CA58 PO
== END ==
LOC: AMB 11:39
PROVIDERS: ATTEND Nurse Practitioner
DX: R06.00 Dyspnea, unspecified (principal); F41.9 Anxiety disorder, unspecified
CPT/HCPCS: A0425; A0427